=== PATIENT | female | born 1990 | race Caucasian/White ===

== ENCOUNTER 2016-12-11 18:53 | Emergency (ER) | payer OTHER ==
[~2016-12-11 18:53] MED LIST: BENTYL10 M1 PO; CARAFATE1 G1 PO; CHLORPHENIRAMINE4 M1 PO; CYCLOBENZAPRINE10 M1 PO; DILAUDID2 M1 PO; EPIPEN 2-P0.3 MG/0.3 IM; GOLYTELY1 PDR PO; IBUPROFEN600 M1 PO; IRON325 M1 PO; METOZOLV ODT5 MG SL; MULTI-DAY VITA1 EACH PO; ORTHO TRI-CYCLE1 TA1 PO; ORTHO TRI-CYCLE1 TA2 PO; PERCOCET 325 MG1 TA2 PO; PREDNISONE50 M1 PO; PROMETHAZINE HC25 M1 PO; REGLAN10 M1 PO; TRAMADOL HCL50 M1 PO; TRI-SPRINTEC T1 EACH PO; TYLENOL WITH C1 EACH PO; VENTOLIN HFA18 GM INH; VESICARE 5MG5 MG PO; ZOFRAN8 M1 PO
[2016-12-11 20:13] VITALS: BP 117/68
--- NOTE | 2016-12-11 20:59 | ED NECK/BACK PAIN COMPLAINT ---
History of Present Illness General Chief Complaint: General Adult Stated Complaint: TROUBLE BREATHING S/P HERNIATED DISC THIS AM Source: patient, old records Exam Limitations: no limitations Vital Signs & Intake/Output Vital Signs & Intake/Output Vital Signs Date Time Temp Pulse Resp B/P Pulse O2 O2 Flow FiO2 Ox Delivery Rate 12/11 2012 98.8 112 15 117/68 98 Room Air 12/11 2010 98 Room Air 12/11 1857 97.5 122 16 122/77 97 Room Air Allergies Coded Allergies: gluten (CELIACS DISEASE - SEVERE VOMITING AND MIGRAINES 07/19/16) NSAIDS (Non-Steroidal Anti-Inflamma (BLEEDING 07/19/16) Sulfa (Sulfonamide Antibiotics) (SEVERE VOMITING 07/19/16) azithromycin (SEVERE VOMITING 07/19/16) cephalexin (From KEFLEX) (SEVERE VOMITING, DIARRHEA 07/19/16) Reconcile Medications Cyclobenzaprine HCl 10 MG TABLET 1 TAB PO TID PRN SPASM DO NOT DRIVE WITH MEDICATION Hydrocodone/Acetaminophen (Adell 5-325 Tablet) 5 MG-325 MG TABLET 1-2 TAB PO Q4-6 PRN PRN pain Hydromorphone HCl (Dilaudid) 2 MG TABLET 1 TAB PO Q4H PRN PAIN (Reported) Ibuprofen 600 MG TABLET 1 TAB PO Q6P PRN PAIN/phlebitis with food Metoclopramide HCl (Reglan) 10 MG TABLET 1 TAB PO TID GI (Reported) 30 minutes before meals and bedtime Multivitamin (Multi-Day Vitamins) 1 EACH TABLET 1 TAB PO DAILY SUPPLEMENT ( Reported) Norgestimate-Ethinyl Estradiol (Tri-Sprintec Tablet) 1 EACH TABLET 1 TAB PO DAILY CONTROL (Reported) Ondansetron HCl (Zofran) 8 MG TABLET 1 TAB PO TID PRN GI (Reported) Tramadol HCl 50 MG TABLET 1 TAB PO BIDP PRN PAIN Triage Note: 26 Y/O FEMALE C/O "SEVERE" NECK PAIN S/P FUSION THIS AM BY DR GENAO AT [facility] IN [place]. STATES THEY GAVE HER A SCRIPT FOR PERCOCET BUT IT MAKES HER TOO NAUSEOUS. DUE TO GO BACK TOMORROW FOR DRESSING CHANGE AND WAS TOLD SHE COULD HAVE SCRIPT FOR VICODIN BUT HAS NOTHING UNTIL THEN. TOOK FLEXERIL AT 1600 AND TRAMADOL AT 1800 WITH NO RELIEF. DRESSING IN PLACE, C/D/I Triage Nurses Notes Reviewed? yes : No Patient currently breastfeeds: No HPI: 26-year-old female here with complaints of anterior neck pain after surgical procedure at this morning. She had an anterior cervical discectomy and fusion by Dr. Salvador Genao performed as outpatient. She was given a posterior sugar Percocet at home however the Percocet makes her nauseous and she is unable take it, she is here because of the increased severe pain of the anterior neck. She is requesting Dilaudid IV for pain and states that she has some mild reaction where she feels jittery to it and is requesting Benadryl for this as well. She has no weakness or numbness in the extremities. She is able to swallow Past History Travel History Traveled to [place] past 21 day No Medical History Any Pertinent Medical History? 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 No Review of Systems Review of Systems Constitutional: Reports: see HPI. Eyes: Reports: no symptoms. Ears, Nose, Throat, Mouth: Reports: no symptoms. Respiratory: Reports: no symptoms. Cardiovascular: Reports: no symptoms. Gastrointestinal/Abdominal: Reports: no symptoms. Musculoskeletal: Reports: see HPI. Skin: Reports: no symptoms. Neurological/Psychological: Reports: no symptoms. All Other Systems: Reviewed and Negative Physical Exam Physical Exam Neck: supple, dressing applied to the anterior neck which is clean and dry. Mild swelling to the anterior left side of the neck region Comments: Well-developed well-nourished no apparent distress. HEENT: Atraumatic, extraocular motion intact Neck: Supple, no lymphadenopathy Back: Nontender Respiratory: No respiratory distress Extremities: No edema, full range of motion Neuro: Alert and oriented x3 Psych: Mood affect normal, normal memory normal judgment. Skin: Warm and dry, no rash on exposed skin Progress Differential Diagnosis: C spine injury, carotid dissection, herniated disc, post op infection Plan of Care: Patient treated with 1 mg Dilaudid IV and 25 mg of Benadryl IV. Upon reevaluation she is better, pain is 5 out of 10 and she is stable for discharge home. She is given a prescription for Vicodin until she can see her surgeon tomorrow. She has an appointment already Departure Departure Disposition: HOME OR SELF CARE Condition: Stable Clinical Impression Primary Impression: Post-op pain Referrals: LINSEY HAWTHORNE,JAZMYNE Azevedo (PCP/Family) Additional Instructions: Take Vicodin as needed for pain. Follow-up with your doctor tomorrow as scheduled Departure Forms: Customer Survey General Discharge Information Prescriptions: Current Visit Scripts Hydrocodone/Acetaminophen (Adell 5-325 Tablet) 1-2 TAB PO Q4-6 PRN PRN pain #10 TAB
[2016-12-11] MEDS ORDERED: NORCO 5-325 TA1 EACH PO (21:28)
== END 2016-12-11 21:37 ==
LOC: ERH 18:53
DX: G89.18 Other acute postprocedural pain (principal)
CPT/HCPCS: 96374; 96375; J1200

== ENCOUNTER 2017-01-28 21:44 | Emergency (ER) | payer OTHER ==
[~2017-01-28] VITALS: Ht 154.9 cm; Wt 53.5 kg
[~2017-01-28 21:44] MED LIST changes: +NORCO 5-325 TA1 EACH PO
--- NOTE | 2017-01-28 22:22 | ED DYSPNEA/ASTHMA COMPLAINT ---
History of Present Illness General Chief Complaint: Wheezing/Asthma Stated Complaint: "ASTHMA, WHEEZING, CHEST TIGHTNESS" PER PT Source: patient, family Exam Limitations: no limitations Vital Signs & Intake/Output Vital Signs & Intake/Output Vital Signs Date Time Temp Pulse Resp B/P Pulse O2 O2 Flow FiO2 Ox Delivery Rate 01/28 2318 98.1 95 20 118/78 99 Room Air Room Air 01/28 2227 99 01/28 2150 98.0 116 22 116/82 98 Room Air ED Intake and Output 01/29 0000 01/28 1200 Intake Total Output Total Balance Patient 118 lb Weight Allergies Coded Allergies: gluten (CELIACS DISEASE - SEVERE VOMITING AND MIGRAINES 07/19/16) NSAIDS (Non-Steroidal Anti-Inflamma (BLEEDING 07/19/16) Sulfa (Sulfonamide Antibiotics) (SEVERE VOMITING 07/19/16) azithromycin (SEVERE VOMITING 07/19/16) cephalexin (From KEFLEX) (SEVERE VOMITING, DIARRHEA 07/19/16) Reconcile Medications Albuterol Sulfate (Ventolin Hfa) 90 MCG HFA.AER.AD 2 PUF INH Q4-6 PRN PRN ASTHMA (Reported) Albuterol Sulfate 2.5 MG/3 ML (0.083 %) VIAL.NEB 1 Vial INH/ELLA PRN ASTHMA ( Reported) Benzonatate 100 MG CAPSULE 1 CAP PO TID PRN COUGH (Reported) Methylprednisolone. (Medrol) 4 MG TAB.DS.PK 1 DP PO AD INFLAMMATION 6 on day 1 then reduce by one tablet daily until gone Metoclopramide HCl (Reglan) 10 MG TABLET 1 TAB PO TID PRN GI (Reported) 30 minutes before meals and bedtime Mometasone/Formoterol (Dulera 200 Mcg/5 Mcg Inhaler) 200 MCG-5 MCG/ACTUATION HFA.AER.AD 2 PUF INH BID PRN ASTHMA (Reported) Multivitamin (Multi-Day Vitamins) 1 EACH TABLET 1 TAB PO DAILY SUPPLEMENT ( Reported) Norgestimate-Ethinyl Estradiol (Tri-Sprintec Tablet) 1 EACH TABLET 1 TAB PO DAILY CONTROL (Reported) Ondansetron HCl (Zofran) 8 MG TABLET 1 TAB PO TID PRN GI (Reported) Triage Note: HX OF ASTHMA INCREASED SOB , WHEEZE HOME MDI AND NEB NOT HOLDING LAST NEB APPROX 20 MINS AGO Triage Nurses Notes Reviewed? yes Onset: Gradual Duration: getting worse Timing: recent history Severity: moderate HPI: Patient is a 26-year-old female with a past medical history of asthma who presents emergency room with a three-day history of cough chest tightness and wheezing and nasal congestion. Patient has tried multiple episodes of nebulizer treatments and inhalers antitussive medications and antihistamines with minimal relief of symptoms. Denies fevers Patient states that her trigger for worsening symptoms of asthma today was being outside in the cold (BLOSSOM SWENSON) Past History Travel History Traveled to [place] past 21 day No Medical History Any Pertinent Medical History? 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 No (BLOSSOM SWENSON) Review of Systems Review of Systems Constitutional: Reports: see HPI. EENTM: Reports: see HPI. Respiratory: Reports: see HPI. Cardiovascular: Reports: no symptoms. GI: Reports: no symptoms. Genitourinary: Reports: no symptoms. Musculoskeletal: Reports: no symptoms. Skin: Reports: no symptoms. Neurological/Psychological: Reports: no symptoms. Hematologic/Endocrine: Reports: no symptoms. Immunologic/Allergic: Reports: no symptoms. All Other Systems: Reviewed and Negative (BLOSSOM SWENSON) Physical Exam Physical Exam General Appearance: no apparent distress, alert, comfortable Respiratory: normal breath sounds, chest non-tender, no respiratory distress Comments: Well-developed well-nourished person in no acute distress HEENT: Normal EENT exam, extraocular motion intact, no nystagmus. Pupils equally round and reactive to light and accommodation. Nose is atraumatic. External auditory canal and Tympanic membranes clear. Pharynx normal. No swelling or edema. Neck: Supple, no lymphadenopathy, normal range of motion without pain or tenderness Back: Nontender, no CVA tenderness. Cardiovascular: Regular rate and rhythms no murmurs rubs or gallops, normal JVP Respiratory: Chest nontender. No respiratory distress.breath sounds clear to auscultation bilaterally Abdomen: Soft, nontender nondistended, no appreciable organomegaly. Normal bowel sounds. No ascites Extremity: No edema, no calf tenderness to palpation, normal and equal pulses. Neuro: Alert oriented x3, motor sensory normal, Skin: No appreciable rash on exposed skin, skin is warm and dry. Psych: Mood and affect is normal, memory and judgment is normal. Core Measures ACS in differential dx? No Severe Sepsis Present: No Septic Shock Present: No (BLOSSOM SWENSON) Progress Differential Diagnosis: asthma, AMI, bronchitis, costochondritis, CHF, COPD, musculoskeletal pain, pericarditis, pulmonary embolism, pneumonia, pneumothorax, rib fracture, unstable angina Plan of Care: Patient on this examination looks well no apparent distress clear lungs auscultation 96% room air 02 Patient was given nebulizer treatment and states she had significant resolution of her chest tightness and wheezing. PERC ZERO Upon discharge patient looks well no apparent distress and will comply with discharge instructions and had no questions Initial ED EKG: none (BLOSSOM SWENSON) Departure Departure Disposition: HOME OR SELF CARE Condition: Stable Clinical Impression Primary Impression: Asthma attack Referrals: LINSEY HAWTHORNE,JAZMYNE Azevedo (PCP/Family) Additional Instructions: As discussed begin the prescription of Medrol Dosepak tomorrow as you receive prednisone in the emergency room today. Continue home medications especially YOUR breathing medications for your symptoms. If symptoms worsen return to emergency room. Follow-up with your PRIMARY care doctor in 2 days if no better prescription is awaiting at [facility] pharmacy Departure Forms: Customer Survey General Discharge Information Prescriptions: Current Visit Scripts Methylprednisolone. (Medrol) 1 DP PO AD #1 DP 6 on day 1 then reduce by one tablet daily until gone (BLOSSOM SWENSON) PA/PHYSICAL THERAPY AIDES TEACHER Co-Sign Statement Statement: ED Attending supervision documentation- [] I saw and evaluated the patient. I have also reviewed all the pertinent lab results and diagnostic results. I agree with the findings and the plan of care as documented in the PA's/PHYSICAL THERAPY AIDES TEACHER's documentation. [X] I have reviewed the ED Record and agree with the PA's/PHYSICAL THERAPY AIDES TEACHER's documentation. [] Additions or exceptions (if any) to the PAs/PHYSICAL THERAPY AIDES TEACHER's note and plan are summarized below: [] (SRAVAN HAWTHORNE,LUIS) Critical Care Note Critical Care Note Critical Care Time: non-applicable (BLOSSOM SWENSON)
[2017-01-28] MEDS ORDERED: VENTOLIN HFA18 GM INH (22:23)
[2017-01-28] MEDS ORDERED: ALBUTEROL2.5 MG/3 M INH/SOL (22:24)
[2017-01-28] MEDS ORDERED: DULERA 200 MCG/13 GM INH (22:25)
[2017-01-28] MEDS ORDERED: BENZONATATE100 M1 PO (22:26)
[2017-01-28] MEDS ORDERED: MEDROL4 M2 PO (22:49)
[2017-01-28 23:18] VITALS: BP 118/78
== END 2017-01-28 23:18 ==
LOC: ERH 21:44
DX: J45.909 Unspecified asthma, uncomplicated (principal)
CPT/HCPCS: 1263

== ENCOUNTER 2017-02-10 05:53 | Emergency (ER) | payer OTHER ==
[~2017-02-10] VITALS: Ht 157.5 cm; Wt 63.5 kg
[~2017-02-10 05:53] MED LIST changes: +ALBUTEROL2.5 MG/3 M INH/SOL; +BENZONATATE100 M1 PO; +DULERA 200 MCG/13 GM INH; +MEDROL4 M2 PO
--- NOTE | 2017-02-10 07:34 | ED NECK/BACK PAIN COMPLAINT ---
History of Present Illness General Chief Complaint: Neck/Upper Back Pain/Injury Stated Complaint: NECK PAIN, UNABLE TO TURN, RADIATING INTO SHOULDER Source: patient, family, old records Exam Limitations: no limitations Vital Signs & Intake/Output Vital Signs & Intake/Output Vital Signs Date Time Temp Pulse Resp B/P Pulse O2 O2 Flow FiO2 Ox Delivery Rate 02/10 0758 84 20 117/83 99 Room Air 02/10 0632 96.3 87 18 110/53 96 Room Air Allergies Coded Allergies: gluten (CELIACS DISEASE - SEVERE VOMITING AND MIGRAINES 07/19/16) NSAIDS (Non-Steroidal Anti-Inflamma (BLEEDING 07/19/16) Sulfa (Sulfonamide Antibiotics) (SEVERE VOMITING 07/19/16) azithromycin (SEVERE VOMITING 07/19/16) cephalexin (From KEFLEX) (SEVERE VOMITING, DIARRHEA 07/19/16) Reconcile Medications Albuterol Sulfate (Ventolin Hfa) 90 MCG HFA.AER.AD 2 PUF INH Q4-6 PRN PRN ASTHMA (Reported) Albuterol Sulfate 2.5 MG/3 ML (0.083 %) VIAL.NEB 1 Vial INH/ELLA PRN ASTHMA ( Reported) Cyclobenzaprine HCl 10 MG TABLET 1 TAB PO Q8P PAIN OR SPASM Melatonin 5 MG TABLET 1 TAB PO QPM INSOMNIA (Reported) Metoclopramide HCl (Reglan) 10 MG TABLET 1 TAB PO TID PRN GI (Reported) 30 minutes before meals and bedtime Mometasone/Formoterol (Dulera 200 Mcg/5 Mcg Inhaler) 200 MCG-5 MCG/ACTUATION HFA.AER.AD 2 PUF INH BID PRN ASTHMA (Reported) Multivitamin (Multi-Day Vitamins) 1 EACH TABLET 1 TAB PO DAILY SUPPLEMENT ( Reported) Norgestimate-Ethinyl Estradiol (Tri-Sprintec Tablet) 1 EACH TABLET 1 TAB PO DAILY CONTROL (Reported) Ondansetron HCl (Zofran) 8 MG TABLET 1 TAB PO TID PRN GI (Reported) Tramadol HCl 50 MG TABLET 1 TAB PO Q6P PRN PAIN Triage Note: PT TO ED C/O NECK PAIN. PT STATES SHE WOKE UP AND COULD NOT MOVE HER NECK, PT HAD A DISC REMOVAL SURGERY IN NOVEMBER AND "JUST WANTED TO BE CAUTIOUS." Triage Nurses Notes Reviewed? yes : No Patient currently breastfeeds: No HPI: Patient woke up this morning and turned over bed and has sudden onset of severe pain to the left back part of her neck. The pain is 10 out of 10. The pain increased with movement. The pain radiates into her left shoulder. There is no numbness or tingling. The pain is sharp and stabbing and aching in nature. Patient had cervical surgery in November. Patient denies any headache. There is no incontinence of bowel or bladder. There is no difficulty breathing. Past History Travel History Traveled to [place] past 21 day No Medical History Any Pertinent Medical History? 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 No Review of Systems Review of Systems Constitutional: Reports: no symptoms. Ears, Nose, Throat, Mouth: Reports: no symptoms. Respiratory: Reports: no symptoms. Cardiovascular: Reports: no symptoms. Gastrointestinal/Abdominal: Reports: no symptoms. Musculoskeletal: Reports: see HPI, neck pain. Neurological/Psychological: Reports: no symptoms. Physical Exam Physical Exam General Appearance: well developed/nourished, alert, awake, anxious, moderate distress Head: atraumatic, normal appearance Eyes: Bilateral: PERRL, EOMI. Neck: normal inspection, normal alignment, muscle spasm, pain, no midline tenderness Respiratory: normal breath sounds, chest non-tender, no respiratory distress, lungs clear Cardiovascular: regular rate/rhythm, normal peripheral pulses Gastrointestinal: normal bowel sounds, soft, non-tender, no organomegaly Back: normal inspection, normal range of motion Extremities: non-tender Neurologic/Psych: no motor/sensory deficits, awake, alert, oriented x 3, normal gait, normal mood/affect Progress Differential Diagnosis: C spine injury, myofascial strain Plan of Care: Current Medications Sig/Daksha Start time Last Medication Dose Stop Time Status Admin Cyclobenzaprine HCl 10 MG ONCE ONE 02/10 745 UNVr (Flexeril 10MG Tab) 03/26 0746 Departure Departure Disposition: HOME OR SELF CARE Condition: Stable Clinical Impression Primary Impression: Neck pain Referrals: LINSEY HAWTHORNE,JAZMYNE Azevedo (PCP/Family) Additional Instructions: USE MOIST HEAT CALL YOUR SURGEON TOMORROW MORNING RETURN IF SYMPTOMS WORSEN OR FOR ANY COCNERNS Departure Forms: Customer Survey General Discharge Information Prescriptions: Current Visit Scripts Cyclobenzaprine HCl 1 TAB PO Q8P #20 TAB Tramadol HCl 1 TAB PO Q6P PRN PAIN #30 TAB
[2017-02-10] MEDS ORDERED: MELATONIN5 M7 PO (07:57)
[2017-02-10 07:58] VITALS: BP 117/83
[2017-02-10] MEDS ORDERED: CYCLOBENZAPRINE10 M1 PO (08:07)
[2017-02-10] MEDS ORDERED: TRAMADOL HCL50 M1 PO (08:07)
== END 2017-02-10 08:13 ==
LOC: ERH 05:53
DX: M54.2 Cervicalgia (principal)

== ENCOUNTER 2017-03-26 21:57 | Emergency (ER) | payer OTHER ==
[~2017-03-26] VITALS: Ht 154.9 cm; Wt 57.6 kg
[~2017-03-26 21:57] MED LIST changes: +MELATONIN5 M7 PO
--- NOTE | 2017-03-26 22:50 | ED GI/GU/ABDOMINAL COMPLAINT ---
History of Present Illness General Chief Complaint: Abdominal Pain/Flank Pain Stated Complaint: PT BLEEEDING RECTAL,SHARP LOWER ABDOMINAL PAIN 2AM Source: patient, family, old records Exam Limitations: no limitations Vital Signs & Intake/Output Vital Signs & Intake/Output Vital Signs Date Time Temp Pulse Resp B/P B/P Pulse O2 O2 Flow FiO2 Mean Ox Delivery Rate 03/26 2350 98.4 80 16 106/70 98 Room Air Room Air 03/26 2203 97.6 98 18 123/86 96 Room Air ED Intake and Output 03/27 0000 03/26 1200 Intake Total 1000 Output Total Balance 1000 Intake, IV 1000 Patient 127 lb Weight Weight Reported by Patient Measurement Method Allergies Coded Allergies: gluten (CELIACS DISEASE - SEVERE VOMITING AND MIGRAINES 07/19/16) NSAIDS (Non-Steroidal Anti-Inflamma (BLEEDING 07/19/16) Sulfa (Sulfonamide Antibiotics) (SEVERE VOMITING 07/19/16) azithromycin (SEVERE VOMITING 07/19/16) cephalexin (From KEFLEX) (SEVERE VOMITING, DIARRHEA 07/19/16) Reconcile Medications Albuterol Sulfate (Ventolin Hfa) 90 MCG HFA.AER.AD 2 PUF INH Q4-6 PRN PRN ASTHMA (Reported) Albuterol Sulfate 2.5 MG/3 ML (0.083 %) VIAL.NEB 1 Vial INH/ELLA PRN ASTHMA ( Reported) Cyclobenzaprine HCl 10 MG TABLET 1 TAB PO Q8P PAIN OR SPASM Melatonin 5 MG TABLET 1 TAB PO QPM INSOMNIA (Reported) Metoclopramide HCl (Reglan) 10 MG TABLET 1 TAB PO TID PRN GI (Reported) 30 minutes before meals and bedtime Mometasone/Formoterol (Dulera 200 Mcg/5 Mcg Inhaler) 200 MCG-5 MCG/ACTUATION HFA.AER.AD 2 PUF INH BID PRN ASTHMA (Reported) Multivitamin (Multi-Day Vitamins) 1 EACH TABLET 1 TAB PO DAILY SUPPLEMENT ( Reported) Norgestimate-Ethinyl Estradiol (Tri-Sprintec Tablet) 1 EACH TABLET 1 TAB PO DAILY CONTROL (Reported) Ondansetron HCl (Zofran) 8 MG TABLET 1 TAB PO TID PRN GI (Reported) Tramadol HCl 50 MG TABLET 1 TAB PO Q6P PRN PAIN Triage Note: REPORTS SHARP LEFT LOWER ABDOMINAL PAIN WITH BRBPR. Triage Nurses Notes Reviewed? yes ? n Is pt currently ? No HPI: Patient is a 26-year-old female presents complaining of left lower quadrant abdominal pain, nausea, vomiting, rectal bleeding. Patient has been having nausea and vomiting for the past 2 months which she attributes has a flareup of her gastroparesis. Rectal bleeding started this morning. She with a sharp pain to the left lower quadrant. Pain is moderate to severe. Patient was unable to tolerate any oral intake, take her nausea medication or her proton pump inhibitor. Patient denies fevers, chills Past History Travel History Traveled to [place] past 21 day No Medical History Any Pertinent Medical History? 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 No Review of Systems Review of Systems Constitutional: Denies: chills, fever. EENTM: Reports: no symptoms. Respiratory: Denies: cough, short of breath. Cardiovascular: Denies: chest pain. GI: Reports: see HPI. Genitourinary: Reports: no symptoms. Musculoskeletal: Reports: no symptoms. Skin: Reports: no symptoms. Neurological/Psychological: Reports: no symptoms. Hematologic/Endocrine: Reports: see HPI. Immunologic/Allergic: Reports: no symptoms. Physical Exam Physical Exam General Appearance: well developed/nourished, alert, awake Head: atraumatic, normal appearance Eyes: Bilateral: normal appearance, PERRL, EOMI. Ears, Nose, Throat, Mouth: hearing grossly normal, moist mucous membrane Neck: normal inspection, supple, full range of motion Respiratory: normal breath sounds, chest non-tender, no respiratory distress, lungs clear Cardiovascular: regular rate/rhythm Gastrointestinal: normal bowel sounds, soft, mild wyatt-umbilical and left lower quadrant tenderness Back: normal inspection, normal range of motion, no cva tenderness Extremities: normal range of motion Neurologic/Psych: no motor/sensory deficits, awake, alert, oriented x 3, normal gait, normal mood/affect Skin: intact, normal color, warm/dry Core Measures ACS in differential dx? No Severe Sepsis Present: No Septic Shock Present: No Progress Differential Diagnosis: bowel obstruction, colon cancer, diverticulitis, ectopic , endometritis, gastritis, hepatitis, hernia, ischemic bowel, inflamm bowel dis, ovarian cyst, ovarian torsion, UTI/pyelo Plan of Care: Orders Procedure Date/time Status LIPASE 03/26 2312 Complete URINALYSIS 03/26 2204 Active COMPREHENSIVE METABOLIC PANEL 03/26 2204 Complete CBC WITHOUT DIFFERENTIAL 03/26 2204 Complete Laboratory Tests 03/26/172311: Anion Gap 14, Estimated GFR > 60, BUN/Creatinine Ratio 24.3, Glucose 100 H, Calcium 9.3, Total Bilirubin 0.4, AST 23, ALT 25, Alkaline Phosphatase 67, Total Protein 7.3, Albumin 4.3, Globulin 3.0, Albumin/Globulin Ratio 1.4, Lipase 107, CBC w Diff NO MAN DIFF REQ, RBC 4.77, MCV 85.9, MCH 28.3, RDW 12.3, MPV 8.4, Gran % 51.6, Lymphocytes % 40.4, Monocytes % 5.4, Eosinophils % 1.9, Basophils % 0.7, Absolute Granulocytes 4.0, Absolute Lymphocytes 3.1, Absolute Monocytes 0.4 , Absolute Eosinophils 0.1, Absolute Basophils 0.1, PUBS MCHC 32.9 L 03/26/17 2255: Lipase Cancelled Patient reports significant improvement after Reglan, Zofran, Protonix. Pain improved to 3 out of 10. Patient's hemoglobin and hematocrit within normal limits. Patient appears stable for discharge and follow-up with her target developer. (JAD TOBAR,JAZMYNE) Initial ED EKG: none Departure Departure Time of Disposition: 2340 Disposition: HOME OR SELF CARE Condition: Stable Clinical Impression Primary Impression: Rectal bleeding Secondary Impressions: Abdominal pain Qualifiers: Abdominal location: generalized Qualified Code: R10.84 - Generalized abdominal pain Referrals: ADOLPH HAWTHORNE,FISH STILES MD,JAZMYNE Azevedo (PCP/Family) Additional Instructions: Follow up with Dr. George for further evaluation. Return to the ER if increasing bleeding, unable to stay hydrated or worsening of symptoms. Departure Forms: Customer Survey General Discharge Information
[2017-03-26 23:22] LABS: ABSOLUTE BASOPHIL COUNT 0.1 /CUMM (0.0-0.2); ABSOLUTE EOSINOPHIL COUNT 0.1 /CUMM (0.0-0.7); ABSOLUTE LYMPH COUNT 3.1 /CUMM (1.2-3.4); ABSOLUTE MONOCYTE COUNT 0.4 /CUMM (0.10-0.60); BASOPHIL % 0.7 % (0.0-2.0); EOSINOPHIL % 1.9 % (0-5); GRANULOCYTE % 51.6 % (42.2-75.2); MEAN CORPUSCULAR HGB 28.3 PG (27.0-31.0); MEAN CORPUSCULAR HGB CONC 32.9 G/DL (33.0-37.0); MEAN CORPUSCULAR VOLUME 85.9 FL (81.0-99.0); MEAN PLATELET VOLUME 8.4 FL (7.4-10.4); PLATELET COUNT 263 /CUMM (130-400); RBC DISTRIBUTION WIDTH 12.3 % (11.5-14.5); RED BLOOD CELL CT 4.77 /CUMM (4.20-5.40); WHITE BLOOD CELL COUNT 7.7 /CUMM (4.8-10.8)
[2017-03-26 23:50] VITALS: BP 106/70
== END 2017-03-26 23:51 ==
LOC: ERH 21:57
PROVIDERS: Emergency Medicine
DX: K62.5 Hemorrhage of anus and rectum (principal); R10.32 Left lower quadrant pain
CPT/HCPCS: 96374; 96375; J2405; J2765

== ENCOUNTER 2017-05-03 11:16 | Emergency (ER) | payer OTHER ==
[~2017-05-03] VITALS: Ht 154.9 cm; Wt 54.9 kg
[2017-05-03 13:23] LABS: ABSOLUTE BASOPHIL COUNT 0 /CUMM (0.0-0.2); ABSOLUTE EOSINOPHIL COUNT 0.1 /CUMM (0.0-0.7); ABSOLUTE GRANULOCYTE CT 7.5 /CUMM (1.4-6.5); ABSOLUTE LYMPH COUNT 1.7 /CUMM (1.2-3.4); ABSOLUTE MONOCYTE COUNT 0.4 /CUMM (0.10-0.60); BASOPHIL % 0.4 % (0.0-2.0); EOSINOPHIL % 0.9 % (0-5); GRANULOCYTE % 76.8 % (42.2-75.2); HEMATOCRIT 38.4 % (37-47); MEAN CORPUSCULAR HGB 28.1 PG (27.0-31.0); MEAN CORPUSCULAR HGB CONC 33.4 G/DL (33.0-37.0); MEAN CORPUSCULAR VOLUME 84.1 FL (81.0-99.0); MEAN PLATELET VOLUME 7.4 FL (7.4-10.4); PLATELET COUNT 195 /CUMM (130-400); RBC DISTRIBUTION WIDTH 12.8 % (11.5-14.5); RED BLOOD CELL CT 4.56 /CUMM (4.20-5.40); WHITE BLOOD CELL COUNT 9.7 /CUMM (4.8-10.8)
--- NOTE | 2017-05-03 14:12 | ED GI/GU/ABDOMINAL COMPLAINT ---
History of Present Illness General Chief Complaint: Abdominal Pain/Flank Pain Stated Complaint: ABD PAIN Source: patient Exam Limitations: no limitations Vital Signs & Intake/Output Vital Signs & Intake/Output Vital Signs Date Time Temp Pulse Resp B/P B/P Pulse O2 O2 Flow FiO2 Mean Ox Delivery Rate 05/03 1633 97.8 98 18 106/74 98 Room Air 05/03 1402 97.5 119 20 105/75 97 Room Air 05/03 1131 97.9 112 20 106/75 97 Room Air Allergies Coded Allergies: gluten (CELIACS DISEASE - SEVERE VOMITING AND MIGRAINES 07/19/16) NSAIDS (Non-Steroidal Anti-Inflamma (BLEEDING 07/19/16) Sulfa (Sulfonamide Antibiotics) (SEVERE VOMITING 07/19/16) azithromycin (SEVERE VOMITING 07/19/16) cephalexin (From KEFLEX) (SEVERE VOMITING, DIARRHEA 07/19/16) Reconcile Medications Albuterol Sulfate (Ventolin Hfa) 90 MCG HFA.AER.AD 2 PUF INH Q4-6 PRN PRN ASTHMA (Reported) Albuterol Sulfate 2.5 MG/3 ML (0.083 %) VIAL.NEB 1 Vial INH/ELLA PRN ASTHMA ( Reported) Cyclobenzaprine HCl 10 MG TABLET 1 TAB PO Q8P PAIN OR SPASM Metoclopramide HCl (Reglan) 10 MG TABLET 1 TAB PO TID PRN GI (Reported) 30 minutes before meals and bedtime Mometasone/Formoterol (Dulera 200 Mcg/5 Mcg Inhaler) 200 MCG-5 MCG/ACTUATION HFA.AER.AD 2 PUF INH BID PRN ASTHMA (Reported) Multivitamin (Multi-Day Vitamins) 1 EACH TABLET 1 TAB PO DAILY SUPPLEMENT ( Reported) Norgestimate-Ethinyl Estradiol (Tri-Sprintec Tablet) 1 EACH TABLET 1 TAB PO DAILY CONTROL (Reported) Ondansetron HCl (Zofran) 8 MG TABLET 1 TAB PO TID PRN GI (Reported) Promethazine HCl 12.5 MG TABLET 1 TAB PO Q6-8 PRN NAUSEA Tramadol HCl 50 MG TABLET 1 TAB PO Q8 PAIN (Reported) Triage Note: C/O BLOATING, PAINFUL LLQ, DIARRHEA WITH NAUSEA AND VOMITING X [address] BRYANT WOULD LIKE HER TO HAVE CT SCAN TO R/O DIVERTICULITIS Triage Nurses Notes Reviewed? yes ? N Is pt currently ? No Duration: constant Timing: recent history Quality/Severity: cramping Severity Numbers: 5 Location: left lower quadrant Radiation: no radiation Prior Abdominal Problems: similar symptoms HPI: Patient is a 26-year-old female with a past medical history of bulimia, possible celiac disease, asthma, and chronic gastritis which patient has been evaluated on multiple occasions in [place] emergency room for abdominal pain and gastritis like symptoms. Patient's last endoscopy was performed by Dr. Bryant in May 17, 2016 in which patient states that the past week she's been complaining of worsening left lower quadrant abdominal pain where she states that every time she eats or drinks anything approximately 30 minutes to 1 hours later she vomits everything up. Patient states that she called Dr. Bryant's office today which she advised to obtain CT scan for rule out diverticulitis. Patient has had loose watery diarrhea production for the past week. No blood no melena noted. Denies any fever chills vaginal bleeding or vaginal discharge dysuria hematuria or back pain (BLOSSOM SWENSON) Past History Travel History Traveled to [place] past 21 day No Medical History Any Pertinent Medical History? 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 No (BLOSSOM SWENSON) Review of Systems Review of Systems Constitutional: Reports: no symptoms. EENTM: Reports: no symptoms. Respiratory: Reports: no symptoms. Cardiovascular: Reports: no symptoms. GI: Reports: see HPI, abdominal pain. Genitourinary: Reports: no symptoms. Musculoskeletal: Reports: no symptoms. Skin: Reports: no symptoms. Neurological/Psychological: Reports: no symptoms. Hematologic/Endocrine: Reports: no symptoms. Immunologic/Allergic: Reports: no symptoms. All Other Systems: Reviewed and Negative (BLOSSOM SWENSON) Physical Exam Physical Exam General Appearance: no apparent distress, alert Gastrointestinal: normal bowel sounds, soft, LLQ PAIN Comments: Well-developed well-nourished person in no acute distress HEENT: Normal EENT exam, Neck: Supple, no lymphadenopathy, normal range of motion without pain or tenderness Back: Nontender, no CVA tenderness. Cardiovascular: Regular rate and rhythms no murmurs rubs or gallops, normal JVP Respiratory: Chest nontender. No respiratory distress.breath sounds clear to auscultation bilaterally Extremity: No edema, no calf tenderness to palpation, normal and equal pulses. Neuro: Alert oriented x3, motor sensory normal, Skin: No appreciable rash on exposed skin, skin is warm and dry. Psych: Mood and affect is normal, memory and judgment is normal. Core Measures ACS in differential dx? No Severe Sepsis Present: No Septic Shock Present: No (BHAVESH TOBAR,BLOSSOM) Progress Differential Diagnosis: AAA, AMI, appendicitis, biliary colic, bowel obstruction , colon cancer, cholecystitis, diverticulitis, ectopic , endometritis, esophageal varices, gastritis, hepatitis, hernia, hemorrhoids, ischemic bowel, inflamm bowel dis, intrauterine , kidney stone, Selam-Elizabeth tear, ovarian cyst, ovarian torsion, pancreatitis, PID/cervicitis, peptic ulcer, PUD/ GERD, perforated viscous, SBO, threatened AB, UTI/pyelo Plan of Care: Orders Procedure Date/time Status Add-on Test (ER Only) 05/03 1421 Active LIPASE 05/03 1312 Complete HUMAN BETA HCG SCREEN 05/03 1312 Complete AMYLASE 05/03 1312 Complete URINE 05/03 1149 Complete URINALYSIS 05/03 1149 Complete COMPREHENSIVE METABOLIC PANEL 05/03 1149 Complete CBC WITHOUT DIFFERENTIAL 05/03 1149 Complete Laboratory Tests 05/03/17 1414: Urinalysis MOD H, Urine Color YEL, Urine Clarity HAZY H, Urine pH 7.0, Ur Specific Tama 1.010, Urine Protein NEG, Urine Ketones NEG, Urine Nitrite NEG, Urine Bilirubin NEG, Urine Urobilinogen 0.2, Ur Leukocyte Esterase NEG, Ur Microscopic SEDIMENT EXAMINED, Urine RBC RARE, Urine WBC 1-3 H, Ur Epithelial Cells MOD H, Urine Bacteria MOD H, Urine Mucus FEW, Urine Hemoglobin NEG, Urine Glucose NEG, Urine Test NEGATIVE 05/03/17 1312: Anion Gap 8, Estimated GFR > 60, BUN/Creatinine Ratio 16.7, Glucose 76, Calcium 9.2, Total Bilirubin 0.3, AST 24, ALT 33, Alkaline Phosphatase 60, Total Protein 6.8, Albumin 3.9, Globulin 2.9, Albumin/Globulin Ratio 1.3, Amylase 61, Lipase 57, Total Beta HCG NEGATIVE, CBC w Diff NO MAN DIFF REQ, RBC 4.56, MCV 84.1, MCH 28.1, RDW 12.8, MPV 7.4, Gran % 76.8 H, Lymphocytes % 17.3 L, Monocytes % 4.6, Eosinophils % 0.9, Basophils % 0.4, Absolute Granulocytes 7.5 H, Absolute Lymphocytes 1.7, Absolute Monocytes 0.4, Absolute Eosinophils 0.1, Absolute Basophils 0, PUBS MCHC 33.4 Patient on initial examination was in no apparent distress Blood work was unremarkable 05/03/2017 3:41:23 PM reevaluation patient still she is in no apparent distress CT scan was obtained and is pending reading patient also had significant complete resolution of nausea and resenting complains after Phenergan CT scan and blood work was all unremarkable. Patient was able tolerate by mouth plan discharge. Patient was strongly advised to follow-up with artificial plastic eye maker. Discussed with patient to continue bowel promotion medications in which a CT scan does show concerns of constipation with no fecal impaction (BHAVESH TOBAR,BLOSSOM) Diagnostic Imaging: Viewed by Me: CT Scan. Radiology Impression: no acute abnormality, no fracture Initial ED EKG: none Comments: PATIENT: TREASURE BELL PRESENT AGE: 26 PATIENT ACCOUNT NO: [id number] : 88 LOCATION: [facility] ORDERING PHYSICIAN: BLOSSOM TOBAR SERVICE DATE: 05/03/17 EXAM TYPE: CAT - CT ABD & PELVIS W IV CONTRAST EXAMINATION: CT ABDOMEN AND PELVIS WITH CONTRAST CLINICAL INFORMATION: Left lower quadrant pelvic pain. COMPARISON: CT abdomen and pelvis 07/22/2015. TECHNIQUE: Multidetector volumetric imaging was performed of the abdomen and pelvis before and after the IV administration of 95 mL of Optiray 320 intravenous contrast. Sagittal and coronal reformatted images were obtained on the technologist's workstation. DLP: 272 mGy-cm FINDINGS: LUNG BASES: The visualized lung bases are unremarkable. LIVER, GALLBLADDER, AND BILIARY TREE: The liver is normal in size, shape, and attenuation. No focal hepatic lesion or biliary ductal dilatation is present. The gallbladder is unremarkable with no evidence of radiopaque gallstones, gallbladder wall thickening, or obvious pericholecystic inflammatory changes. PANCREAS: Unremarkable. SPLEEN: Unremarkable. ADRENAL GLANDS: Unremarkable. KIDNEYS AND URETERS: The kidneys are normal in size, shape, and attenuation. No hydronephrosis, hydroureter, or calculi seen. No perinephric stranding. BLADDER: Unremarkable. GASTROINTESTINAL TRACT: Normal anatomic orientation of the stomach relative to the duodenum. Normal caliber of abdominal and pelvic bowel loops, without evidence of obstruction or ileus. No circumferential bowel wall thickening with surrounding inflammatory changes to suggest an underlying infectious or inflammatory enterocolitis. Nonvisualization of the appendix. No acute inflammatory changes within the right lower quadrant of the abdomen. There is a moderate amount of retained stool throughout the colon, indicative of constipation. No organizing intra-abdominal fluid collections or free intraperitoneal air. ABDOMINAL WALL: No significant hernia is appreciated. LYMPH NODES: No significant abdominal or pelvic adenopathy. VASCULAR: Patent abdominal vasculature. Normal course and caliber of the abdominal aorta and its branching vessels, without aneurysmal dilatation. PELVIC VISCERA: Minimal free pelvic fluid. No adnexal masses are identified. The uterus appears unremarkable. OSSEOUS STRUCTURES: No acute osseous abnormality. Normal alignment of the thoracolumbar spine. No destructive osseous lesions. IMPRESSION: No acute findings within the abdomen or pelvis to explain patient symptomatology. There is a moderate amount of retained stool throughout the colon, indicative of constipation. The appendix is not clearly visualized. However, there are no acute inflammatory changes within the right lower quadrant of the abdomen. DICTATED BY: NORY QUINTERO MD DATE/TIME DICTATED:05/03/171535 SAMPLE STEAMER:BETTE DATE/TIME TRANSCRIBED:05/03/171535 (BLOSSOM SWENSON) Departure Departure Disposition: HOME OR SELF CARE Condition: Stable Clinical Impression Primary Impression: Abdominal pain Secondary Impressions: Constipation Referrals: LINSEY HAWTHORNE,JAZMYNE Azevedo (PCP/Family) Additional Instructions: As discussed continue home medications especially your bowel promotion medication. Begin the prescription of Phenergan as directed for nausea. Prescription is waiting a [facility] pharmacy. Follow up on Saturday to artificial plastic eye maker Dr. FARFAN for further evaluation treatment. IF symptoms worsen return to emergency room. Begin at 24 hour clear liquid and bland diet to rest YOUR bowels Departure Forms: Customer Survey General Discharge Information Prescriptions: Current Visit Scripts Promethazine HCl 1 TAB PO Q6-8 PRN NAUSEA #15 TAB (BLOSSOM SWENSON) PA/HOTEL CLERK Co-Sign Statement Statement: ED Attending supervision documentation- [] I saw and evaluated the patient. I have also reviewed all the pertinent lab results and diagnostic results. I agree with the findings and the plan of care as documented in the PA's/HOTEL CLERK's documentation. [X] I have reviewed the ED Record and agree with the PA's/HOTEL CLERK's documentation. [] Additions or exceptions (if any) to the PAs/HOTEL CLERK's note and plan are summarized below: [] (BRANDYN YAP DO)
[2017-05-03] MEDS ORDERED: TRAMADOL HCL50 M1 PO (14:37)
--- NOTE | 2017-05-03 15:45 | CT SCAN REPORT ---
EXAMINATION: CT ABDOMEN AND PELVIS WITH CONTRAST CLINICAL INFORMATION: Left lower quadrant pelvic pain. COMPARISON: CT abdomen and pelvis 07/22/2015. TECHNIQUE: Multidetector volumetric imaging was performed of the abdomen and pelvis before and after the IV administration of 95 mL of Optiray 320 intravenous contrast. Sagittal and coronal reformatted images were obtained on the technologist's workstation. DLP: 272 mGy-cm FINDINGS: LUNG BASES: The visualized lung bases are unremarkable. LIVER, GALLBLADDER, AND BILIARY TREE: The liver is normal in size, shape, and attenuation. No focal hepatic lesion or biliary ductal dilatation is present. The gallbladder is unremarkable with no evidence of radiopaque gallstones, gallbladder wall thickening, or obvious pericholecystic inflammatory changes. PANCREAS: Unremarkable. SPLEEN: Unremarkable. ADRENAL GLANDS: Unremarkable. KIDNEYS AND URETERS: The kidneys are normal in size, shape, and attenuation. No hydronephrosis, hydroureter, or calculi seen. No perinephric stranding. BLADDER: Unremarkable. GASTROINTESTINAL TRACT: Normal anatomic orientation of the stomach relative to the duodenum. Normal caliber of abdominal and pelvic bowel loops, without evidence of obstruction or ileus. No circumferential bowel wall thickening with surrounding inflammatory changes to suggest an underlying infectious or inflammatory enterocolitis. Nonvisualization of the appendix. No acute inflammatory changes within the right lower quadrant of the abdomen. There is a moderate amount of retained stool throughout the colon, indicative of constipation. No organizing intra-abdominal fluid collections or free intraperitoneal air. ABDOMINAL WALL: No significant hernia is appreciated. LYMPH NODES: No significant abdominal or pelvic adenopathy. VASCULAR: Patent abdominal vasculature. Normal course and caliber of the abdominal aorta and its branching vessels, without aneurysmal dilatation. PELVIC VISCERA: Minimal free pelvic fluid. No adnexal masses are identified. The uterus appears unremarkable. OSSEOUS STRUCTURES: No acute osseous abnormality. Normal alignment of the thoracolumbar spine. No destructive osseous lesions. IMPRESSION: No acute findings within the abdomen or pelvis to explain patient symptomatology. There is a moderate amount of retained stool throughout the colon, indicative of constipation. The appendix is not clearly visualized. However, there are no acute inflammatory changes within the right lower quadrant of the abdomen.
[2017-05-03] MEDS ORDERED: PROMETHAZINE12.5 M2 PO (16:25)
[2017-05-03 16:33] VITALS: BP 106/74
== END 2017-05-03 16:35 ==
LOC: ERH 11:16
PROVIDERS: Emergency Medicine
DX: K59.00 Constipation, unspecified (principal)
CPT/HCPCS: 74177; 81001; 81025; 96374; J2550

== ENCOUNTER 2017-06-13 21:21 | Emergency (ER) | payer OTHER ==
[~2017-06-13 21:21] MED LIST changes: +PROMETHAZINE12.5 M2 PO
[2017-06-13 21:39] VITALS: BP 123/89
== END 2017-06-13 22:07 | disposition admitted as inpatient to this hospital (09) ==
LOC: ERH 21:21
DX: T42.6X1A Poisoning by other antiepileptic and sedative-hypnotic drugs, accidental (unintentional), initial encounter (principal)

== ENCOUNTER 2018-05-15 19:18 | Emergency (ER) | payer OTHER ==
[~2018-05-15] VITALS: Ht 154.9 cm; Wt 59.0 kg
[2018-05-15 19:43] VITALS: BP 95/67
--- NOTE | 2018-05-15 20:26 | ED GI/GU/ABDOMINAL COMPLAINT ---
History of Present Illness General Chief Complaint: Allergy Symptoms Stated Complaint: TROUBLE WITH BOWEL MOVEMENTS Source: patient, family, old records Exam Limitations: no limitations Vital Signs & Intake/Output Vital Signs & Intake/Output Vital Signs Date Time Temp Pulse Resp B/P B/P Pulse O2 O2 Flow FiO2 Mean Ox Delivery Rate 05/15 2053 Room Air 05/15 1943 96.0 83 20 95/67 98 Room Air Allergies Coded Allergies: doxycycline (Severe, SWELLING 05/15/18) gluten (CELIACS DISEASE - SEVERE VOMITING AND MIGRAINES 07/19/16) NSAIDS (Non-Steroidal Anti-Inflamma (BLEEDING 07/19/16) Sulfa (Sulfonamide Antibiotics) (SEVERE VOMITING 07/19/16) azithromycin (SEVERE VOMITING 07/19/16) cephalexin (From KEFLEX) (SEVERE VOMITING, DIARRHEA 07/19/16) Reconcile Medications Albuterol Sulfate (Ventolin Hfa) 90 MCG HFA.AER.AD 2 PUF INH Q4-6 PRN PRN ASTHMA (Reported) Albuterol Sulfate 2.5 MG/3 ML (0.083 %) VIAL.NEB 1 Vial INH/ELLA PRN ASTHMA ( Reported) Cyclobenzaprine HCl 10 MG TABLET 1 TAB PO Q8P PAIN OR SPASM Metoclopramide HCl (Reglan) 10 MG TABLET 1 TAB PO TID PRN GI (Reported) 30 minutes before meals and bedtime Mometasone/Formoterol (Dulera 200 Mcg/5 Mcg Inhaler) 200 MCG-5 MCG/ACTUATION HFA.AER.AD 2 PUF INH BID PRN ASTHMA (Reported) Multivitamin (Multi-Day Vitamins) 1 EACH TABLET 1 TAB PO DAILY SUPPLEMENT ( Reported) Norgestimate-Ethinyl Estradiol (Tri-Sprintec Tablet) 1 EACH TABLET 1 TAB PO DAILY CONTROL (Reported) Ondansetron HCl (Zofran) 8 MG TABLET 1 TAB PO TID PRN GI (Reported) Promethazine HCl 12.5 MG TABLET 1 TAB PO Q6-8 PRN NAUSEA Tramadol HCl 50 MG TABLET 1 TAB PO Q8 PAIN (Reported) Triage Note: PT HERE WITH C/O "NOT MAKING A BOWEL MOVEMENT X 1 MONTH". PT REPORTS HAVING RECENTLY DONE BOWEL PREPS WITHOUT SUCCESS. PT STATES SHE IS ON 145 OF [address]ZZ FOR APPROX 15 DAYS WITHOUT SUCCESS. Triage Nurses Notes Reviewed? yes LMP (ages 10-50): unknown ? n Is pt currently ? No Onset: Last week Duration: day(s):, constant, continues in ED Timing: recent history Quality/Severity: fullness, moderate, severe Location: generalized abdomen Radiation: no radiation Activities at Onset: rest Prior Abdominal Problems: similar symptoms Past Sexual History: Unobtainable at this time No Modifying Factors: none Associated Symptoms: abdominal pain HPI: OVer the last month patient has increasing difficulty with constipation. 5 days prior to admission with the aid of magnesium citrate she was able to move her bowels. Since this time she's had no bowel movement with abdominal distention. She denies fever chills nausea vomiting diarrhea abdominal pain chest pain cough shortness breath headache dysuria rash bleeding . Past History Travel History Traveled to [place] past 21 day No Medical History Any Pertinent Medical History? 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 No Review of Systems Review of Systems Constitutional: Reports: no symptoms. EENTM: Reports: no symptoms. Respiratory: Reports: no symptoms. Cardiovascular: Reports: no symptoms. GI: Reports: see HPI, bloating, constipation, distention. Genitourinary: Reports: no symptoms. Musculoskeletal: Reports: no symptoms. Skin: Reports: no symptoms. Neurological/Psychological: Reports: no symptoms. Hematologic/Endocrine: Reports: no symptoms. Immunologic/Allergic: Reports: no symptoms. All Other Systems: Reviewed and Negative Physical Exam Physical Exam General Appearance: well developed/nourished, alert, awake, anxious Head: atraumatic, normal appearance Eyes: Bilateral: normal appearance, PERRL, EOMI, normal inspection. Ears, Nose, Throat, Mouth: hearing grossly normal, moist mucous membrane Neck: normal inspection, supple, full range of motion, normal alignment Respiratory: normal breath sounds, chest non-tender, no respiratory distress, quiet respiration, lungs clear Cardiovascular: regular rate/rhythm, normal peripheral pulses, norml femoral pulses equa Peripheral Pulses: 4+ carotid (R), 4+ carotid (L) Gastrointestinal: normal bowel sounds, soft, non-tender, no organomegaly, distention Back: normal inspection, normal range of motion Extremities: normal range of motion, no ligament instability Neurologic/Psych: no motor/sensory deficits, awake, alert, oriented x 3, normal gait, normal mood/affect, service architect II-XII nml as tested Skin: intact, normal color, warm/dry Core Measures ACS in differential dx? No Sepsis Present: No Sepsis Focused Exam Completed? No Progress Differential Diagnosis: bowel obstruction Plan of Care: Orders Procedure Date/time Status [id number] VIEWS 05/15 2011 Active Diagnostic Imaging: Viewed by Me: Radiology Read. Discussed w/RAD: Radiology Read. Radiology Impression: No evidence of small bowel obstruction. Large amount of fecal residue throughout the proximal colon. This represents an increase when compared to 07/10/16 Initial ED EKG: none Departure Departure Time of Disposition: 2125 Disposition: HOME OR SELF CARE Condition: Stable Clinical Impression Primary Impression: Constipation Referrals: Ariel HAWTHORNE,Ronal Steiner MD,William Mederos (PCP/Family) Departure Forms: Customer Survey General Discharge Information
--- NOTE | 2018-05-15 20:53 | RADIOLOGY REPORT ---
EXAMINATION: XR ABDOMEN MULTIPLE VIEWS CLINICAL INDICATION: Constipation. Distention COMPARISON: 07/10/16 TECHNIQUE: 2 views of the abdomen. FINDINGS: No focal bone lesion. No suspicious calcification. No significant small bowel distention. There is gas and stool throughout the colon to the level the rectum. There is a large amount of fecal residue in the proximal colon. There is no evidence of pneumoperitoneum. IMPRESSION: No evidence of small bowel obstruction. Large amount of fecal residue throughout the proximal colon. This represents an increase when compared to 07/10/16
== END 2018-05-15 21:58 ==
LOC: ERH 19:18
DX: K59.00 Constipation, unspecified (principal)
CPT/HCPCS: 74021